=== PATIENT | male | born 1985 | race Caucasian/White ===

== ENCOUNTER 2017-12-24 19:57 | Inpatient (IN) | payer BC, OTHER ==
[~2017-12-24 19:57] MED LIST: METH-543 PO
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
[2017-12-24] MEDS ORDERED: TETRACAIN/EPI/LIDO GEL 3ML SYR TP ONE (20:18)
[2017-12-24] MEDS ORDERED: DIPHTH/TETANUS/ACEL. PERTUSSIS IM ONLY ONE (20:20)
[2017-12-24] MEDS ORDERED: fentaNYL CITR 100 MCG/2 ML AMP IVP ONE ×2 (20:20→21:15)
[2017-12-24 20:55] LABS: PLATELET COUNT, AUTOMATED 307 K/uL (150-450)
[2017-12-24 21:04] LABS: INR 0.98
[2017-12-24] MEDS ORDERED: IOPAMIDOL 76% 100 ML INFUS BTL 100 ML ONE (21:10)
[2017-12-24] MEDS ORDERED: fentaNYL CITR 100 MCG/2 ML AMP ONE (21:16)
[2017-12-24] MEDS ORDERED: ONDANSETRON 4 MG/2 ML VIAL ONE (21:16)
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
[2017-12-24] MEDS ORDERED: HYDROMORPHONE HCL 1 MG/ML SYRINGE IVP ONE (21:55)
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
[2017-12-24] MEDS ORDERED: LR(*) 1000 ML BAG 1,000 ML IV PRN (23:30)
[2017-12-24] MEDS ORDERED: NALOXONE HCL 0.4 MG/ML VIAL IVP PRN (23:30)
[2017-12-24] MEDS: KETOROLAC 30 MG/ML VIAL IVP SCH (23:56)
[2017-12-25] VITALS (7 sets, daily range): BP systolic 109–119; BP diastolic 61–75
[2017-12-25] MEDS: HYDROmorphone HCL 2 MG/ML SDV IVP PRN (04:31)
[2017-12-25] MEDS: KETOROLAC 30 MG/ML VIAL IVP SCH ×3 (05:32→17:48)
[2017-12-25 05:48] LABS: PLATELET COUNT, AUTOMATED 203 K/uL (150-450)
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
[2017-12-25] MEDS: FAMOTIDINE 20 MG TAB PO SCH ×2 (08:20→19:57)
[2017-12-25] MEDS ORDERED: LR(*) 1000 ML BAG 1,000 ML IV PRN (08:20)
[2017-12-25] MEDS: DOCUSATE SODIUM 100 MG CAP PO SCH ×2 (08:21→19:57)
[2017-12-25] MEDS: ENOXAPARIN 40 MG/0.4ML SYR SC SCH (08:21)
--- NOTE | 2017-12-25 08:35 | General Surgery Progress Note ---
Subjective Progress Notes Subjective Pain under control, IS up to 2500. No new complaints. Physical Exam Vital Signs Date Time Temp Pulse Resp B/P (MAP) Pulse Ox O2 Delivery O2 Flow Rate FiO2 12/25/17 08:13 97.6 12/25/17 08:09 73 16 109/62 (78) 99 Nasal Cannula 4.0 General Appearance: Alert, Awake, No Acute Distress, Afebrile Neuro: No Gross deficits Eyes: PERRLA ENT: Moist Mucous Membranes Cardiovascular: Regular Rate and Rhythm, No JVD Respiratory: No Respiratory Distress, Clear to Auscultation (Diminished left chest anteriorly) Chest: Other (left chest tender, no subcutaneous emphysema or crepitance) GI: Soft and Non-Tender Extremities: Soft and Non Tender Integumentary: Other (Abrasions clean) Result Diagram: 12/25/17 0512/24/172044 Imaging CXR Slight increase in size of left apical pneumothorax Monitor Interpretation: Normal Sinus Rhythm Assessment and Plan Problems: (1) Pneumothorax Status: Acute Assessment & Plan: 12/24/17: Small CT only pneumothorax, no respiratory distress, O2 saturations okay, will try to see if this resolves spontaneously, continue O2 via NC at 4 liters/min. Repeat CXR in am. 12/25/17: Slight increase in apical pneumothorax, no respiratoy distress. Continue high flow NC oxygen. Will recheck CXR at 1600 if larger then will place pigtail. I discussed this with patient and he understands the plan. (2) Scalp laceration Status: Acute Assessment & Plan: 12/24/17: Tetanus booster given, Scalp wound cleansed and repaired by ED with [place]. Ice packs. Will need jo ann out in 10 days. 12/25/17: Moderate swelling as expected. Ice packs prn. Bacitracin. Okay to shower tomorrow. [place] out 01/03/18. (3) Left pulmonary contusion Status: Acute Assessment & Plan: 12/24/17: Small focus of contusion involving only one lobe, no respiratory compromise. Recheck CXR in am. 12/25/17: Not evident on CXR this morning. O2 saturations 100% on 4l NC (4) Abrasions of multiple sites Status: Acute Assessment & Plan: 12/24/17: cleansed and dressed by ED. Bacitracin BID 12/25/17: Continue Bacitracin, can shower tomorrow. (5) Ribs, multiple fractures Status: Acute Assessment & Plan: 12/24/2017: Left ribs 3-8 fractured, nondisplaced. Admit for pain control Dilaudid, Percocet, and Ketolorac. IS and vigorous pulmonary toilet. Repeat CXR in am. 12/25/17: Good pain control, IS up to 2500, Continue current pain meds. Continue vigorous pulmonary toilet. Time Spent: < 30 min Exam Sepsis Risk: No Definite Risk Problem Qualifiers (1) Pneumothorax: Pneumothorax type: traumatic Encounter type: initial encounter Qualified Codes: S27.0XXA - Traumatic pneumothorax, initial encounter (2) Scalp laceration: Encounter type: initial encounter Qualified Codes: S01.01XA - Laceration without foreign body of scalp, initial encounter (3) Left pulmonary contusion: Encounter type: initial encounter Qualified Codes: S27.321A - Contusion of lung, unilateral, initial encounter (4) Ribs, multiple fractures: Encounter type: initial encounter Fracture type: closed Laterality: left Qualified Codes: S22.42XA - Multiple fractures of ribs, left side, initial encounter for closed fracture BRANDY PINEDO MD Dec 25, 2017 08:35
[2017-12-25] MEDS: BACITRACIN OINT 0.9 GM PKT TP SCH ×2 (09:00→21:00)
--- NOTE | 2017-12-25 16:36 | RADIOLOGY IMAGING REPORT ---
FACILITY: [facility] PATIENT NAME: Gabino Proctor : 1985 MR: [id number] V: [id number] EXAM DATE: ORDERING PHYSICIAN: BRANDY PINEDO TECHNOLOGIST: Location: [facility] [place] Patient: Gabino Proctor : 1985 Visit/Account:[id number] Date of Sevice: 12/25/2017 EXAMINATION: Portable chest radiograph single view at 1550 hours HISTORY: Follow-up on left apical pneumothorax. COMPARISON: CT chest from 12/24/2017 and chest radiograph from 12/25/2017 at 0602 hours. FINDINGS: A single portable AP view of the chest is obtained. Lines/tubes: None. Lungs/pleura: Small to moderate left apical pneumothorax is unchanged. Trace pleural air at the lef t lateral lung base is new or better visualized. Mild left basilar atelectasis. Right lung is clear . There is no pleural effusion. Heart: Negative. Mediastinum: Negative. Bony structures/body wall: Multiple left-sided rib fractures, better visualized on previous CT. IMPRESSION: 1. Small to moderate left pneumothorax, largest at the apex, overall unchanged from most recent ches t radiograph. 2. Mild left basilar atelectasis. Report Dictated By: Lynn Simon MD at 12/25/2017 4:29 PM Report E-Signed By: Lynn Simon MD at 12/25/2017 4:32 PM WSN:[id number]
[2017-12-25] MEDS: ONDANSETRON 4 MG/2 ML VIAL IVP PRN (19:54)
[2017-12-26] MEDS: KETOROLAC 30 MG/ML VIAL IVP SCH ×4 (00:11→18:11)
[2017-12-26 03:03] VITALS: BP 114/55
[2017-12-26 06:27] LABS: PLATELET COUNT, AUTOMATED 186 K/uL (150-450)
--- NOTE | 2017-12-26 06:57 | RADIOLOGY IMAGING REPORT ---
FACILITY: [facility] [place] PATIENT NAME: Gabino Proctor : 1985 MR: [id number] V: [id number] EXAM DATE: ORDERING PHYSICIAN: DONNA ESPINOZA TECHNOLOGIST: Location: [facility] [place] Patient: Gabino Proctor : 1985 Visit/Account:[id number] Date of Sevice: 12/26/2017 CHEST SINGLE AP Indication: Left pneumothorax. Comparison: December 25, 2016. Findings: Heart size within normal limits. There is no focal infiltrate or lobar consolidation. Left basilar atelectasis. Small to moderate left apical pneumothorax is grossly unchanged since prior exam. No right-sided pneu mothorax. Note is made of left-sided rib fractures. IMPRESSION: 1. Small to moderate left apical pneumothorax is grossly unchanged Report Dictated By: Amadou Will MD at 12/26/2017 6:52 AM Report E-Signed By: Amadou Will MD at 12/26/2017 6:53 AM WSN:[id number]
[2017-12-26 07:22] VITALS: BP 115/70
[2017-12-26] MEDS: FAMOTIDINE 20 MG TAB PO SCH ×2 (09:00→21:16)
[2017-12-26] MEDS: DOCUSATE SODIUM 100 MG CAP PO SCH ×2 (09:00→21:16)
[2017-12-26] MEDS: ENOXAPARIN 40 MG/0.4ML SYR SC SCH (09:00)
[2017-12-26] MEDS: BACITRACIN OINT 0.9 GM PKT TP SCH ×2 (10:00→21:16)
[2017-12-26 11:15] VITALS: BP 114/66
[2017-12-26] MEDS ORDERED: ceFAZolin(*) 2GM/D5W 50ML 50 ML IVPB ONE (11:55)
[2017-12-26] MEDS ORDERED: ACETAMINOPHEN 500 MG TAB PO PRN (12:15)
--- NOTE | 2017-12-26 12:24 | General Surgery Progress Note ---
Subjective Progress Notes Subjective Ambulating on the floor with a walker. Wearing N/C O2. Pain is moderately well controlled Patient Complains of: Neurological: No: Syncope, Confusion, Weakness, Dizziness Cardiovascular: No: Chest Pain, Palpitations Respiratory: No: Cough, Congestion, Shortness of Breath Gastrointestinal: No Nausea, No Vomiting, No Flatus Musculoskeletal: Pain, Strain, Impaired Mobility, No: Sprain Physical Exam Vital Signs Date Time Temp Pulse Resp B/P (MAP) Pulse Ox O2 Delivery O2 Flow Rate FiO2 12/26/17 11:15 97.7 62 16 114/66 (82) 100 Nasal Cannula 8.0 Intake and Output 12/27/17 07:00 Intake Total 160 ml Balance 160 ml Intake Oral 160 ml # Voids 1 General Appearance: Alert, Awake, No Acute Distress, Afebrile Neuro: No Gross deficits Eyes: PERRLA, Other (EOMI) ENT: Normal, Moist Mucous Membranes Cardiovascular: Normal Rhythm & Peripheral Pulses, Regular Rate and Rhythm, No Edema Respiratory: No Respiratory Distress, Clear to Auscultation Chest: Other (Chest wall tenderness) GI: Soft and Non-Tender Extremities: Soft and Non Tender, Warm, Perfused Integumentary: Other (Left shoulder and left hip skin abrasions) Psych: Alert & Oriented X3, Appropriate Mood & Affect Result Diagram: 12/26/17 0601 12/24/172044 Monitor Interpretation: Normal Sinus Rhythm Assessment and Plan Problems: (1) Pneumothorax Status: Acute Assessment & Plan: 12/24/17: Small CT only pneumothorax, no respiratory distress, O2 saturations okay, will try to see if this resolves spontaneously, continue O2 via NC at 4 liters/min. Repeat CXR in am. 12/25/17: Slight increase in apical pneumothorax, no respiratory distress. Continue high flow NC oxygen. Will recheck CXR at 1600 if larger then will place pigtail. I discussed this with patient and he understands the plan. 12/26/17: CXR with persistent LEFT pneumothorax, unchanged in size despite N/C O2 supplementation. I have discussed options with the pt to include high flow mask O2 to help with absorption vs placement of a left chest tube. All risks, benefits and complications have been discussed and explained to include persistent air leak, infection, bleeding, injury to underlying structures to include the lung/heart/blood vessels. After careful consultation with his , he has elected to place a chest tube. Informed consent obtained. Will obtain post tube placement CXR and give 2 grams Ancef pre procedure for prophylaxis. (2) Scalp laceration Status: Acute Assessment & Plan: 12/24/17: Tetanus booster given, Scalp wound cleansed and repaired by ED with Jo Ann. Ice packs. Will need jo ann out in 10 days. 12/25/17: Moderate swelling as expected. Ice packs prn. Bacitracin. Okay to shower tomorrow. 12/26/17: Healing well. [place] out 01/03/18. (3) Left pulmonary contusion Status: Acute Assessment & Plan: 12/24/17: Small focus of contusion involving only one lobe, no respiratory compromise. Recheck CXR in am. 12/25/17: Not evident on CXR this morning. O2 saturations 100% on 4l NC 12/26/17: Not evident on his am CXR. Desaturation to 70% when comes off his oxygen (4) Abrasions of multiple sites Status: Acute Assessment & Plan: 12/24/17: cleansed and dressed by ED. Bacitracin BID 12/25/17: Continue Bacitracin, can shower tomorrow. 12/26/17: Continue Bacitracin, can shower daily (5) Ribs, multiple fractures Status: Acute Assessment & Plan: 12/24/2017: Left ribs 3-8 fractured, nondisplaced. Admit for pain control Dilaudid, Percocet, and Ketolorac. IS and vigorous pulmonary toilet. Repeat CXR in am. 12/25/17: Good pain control, IS up to 2500, Continue current pain meds. Continue vigorous pulmonary toilet. 12/26/17: Good pain control. IS 4000. Continue pain management with multimodal therapy and aggressive pulmonary toilet. Minimal displacement on CXR. No retained hemothorax. (6) Hypoxia Status: Acute Assessment & Plan: 12/26/17: Desaturation to 70% when off N/C O2; wean as tolerated. Pneumothorax expansion may improve this. CXR clear. No secretions. (7) Concussion without loss of consciousness Status: Acute Assessment & Plan: 12/26/17: Dazed after hitting his head; scalp laceration; reports no LOC. Neg Head CT on admit. Normal bedside cognitive evaluation. Consider for post concussion surveillance. Avoid recurrent TBI (8) At high risk for deep venous thrombosis Status: Acute Assessment & Plan: 12/26/17: DVT risk high given trauma; CXR without hemothorax. Currently in 40 Lovenox QD. Will change to trauma dose of 30 mg BID given no bleeding noted to date from multiple rib fractures; Continue SCDs. Time Spent: > 30 min (To include chart review, CXR review, documentation, exam , informed consent of care plan options. ) Exam Sepsis Risk: No Definite Risk Problem Qualifiers (1) Pneumothorax: Pneumothorax type: traumatic Encounter type: subsequent encounter Qualified Codes: S27.0XXD - Traumatic pneumothorax, subsequent encounter (2) Scalp laceration: Encounter type: subsequent encounter Qualified Codes: S01.01XD - Laceration without foreign body of scalp, subsequent encounter (3) Left pulmonary contusion: Encounter type: subsequent encounter Qualified Codes: S27.321D - Contusion of lung, unilateral, subsequent encounter (4) Ribs, multiple fractures: Encounter type: subsequent encounter Fracture type: closed Laterality: left Fracture healing: with routine healing Qualified Codes: S22.42XD - Multiple fractures of ribs, left side, subsequent encounter for fracture with routine healing (5) Concussion without loss of consciousness: Encounter type: subsequent encounter Qualified Codes: S06.0X0D - Concussion without loss of consciousness, subsequent encounter BETH HAM MD Dec 26, 2017 12:24
--- NOTE | 2017-12-26 12:27 | Procedure Note ---
Chest Tube Procedure Note Reason for Chest Tube 12/26/17: CXR with persistent pneumothorax, unchanged in size despite N/C O2 supplementation. I have discussed options with the pt to include high flow mask O2 to help with absorption vs placement of a left chest tube. All risks, benefits and complications have been discussed and explained to include persistent air leak, infection, bleeding, injury to underlying structures to include the lung/heart/blood vessels. After careful consultation with his , he has elected to place a chest tube. Informed consent obtained. Consent Signed: Yes Chest Tube Location: Left Lung Complications: None Anesthesia Used: 1% Lidocaine CC's of Anesthesia: 10 Chest Tube Size Fr.: 14 Chest Tube Suction: Pleura-Vac Chest Tube Secured: Occlusive Dressing Post Procedure Xray Ordered: Yes Comment Ancef 2 grams administered pre procedure. BETH HAM MD Dec 26, 2017 12:27
[2017-12-26] MEDS: HYDROmorphone HCL 2 MG/ML SDV IVP PRN ×2 (12:51→21:23)
--- NOTE | 2017-12-26 14:14 | RADIOLOGY IMAGING REPORT ---
FACILITY: [facility] PATIENT NAME: Gabino Proctor : 1985 MR: [id number] V: [id number] EXAM DATE: ORDERING PHYSICIAN: BETH HAM TECHNOLOGIST: Location: [facility] Patient: Gabino Proctor : 1985 Visit/Account:[id number] Date of Sevice: 12/26/2017 Chest single view: HISTORY: Chest tube placement. COMPARISON: 12/26/2017 0525 hours FINDINGS: Portable chest 1259 hours: Since prior study, small caliber left chest tube has been placed , near the left lung apex. There is no definite residual pneumothorax identified. Minimal subsegmenta l atelectasis is present in the left lung base. Right lung is clear. Heart and mediastinal contours a re within normal limits. Left rib fractures noted. IMPRESSION: 1. Interval placement of small-caliber left chest tube with resolution of the left pneumothorax. 2. Left basilar subsegmental atelectasis. Report Dictated By: Mirta Pizarro MD at 12/26/2017 2:06 PM Report E-Signed By: Mirta Pizarro MD at 12/26/2017 2:11 PM WSN:[id number]
[2017-12-26 15:09] VITALS: BP 119/72
[2017-12-26] MEDS: ONDANSETRON 4 MG/2 ML VIAL IVP PRN (15:16)
[2017-12-26] MEDS: oxyCODONE HCL 5 MG CAP PO PRN ×2 (16:23→21:15)
[2017-12-26 19:29] VITALS: BP 111/67
[2017-12-26 23:04] VITALS: BP 117/70
[2017-12-27] MEDS: KETOROLAC 30 MG/ML VIAL IVP SCH ×4 (00:38→18:33)
[2017-12-27] MEDS: oxyCODONE HCL 5 MG CAP PO PRN ×5 (01:30→19:13)
[2017-12-27 03:03] VITALS: BP 112/67
[2017-12-27] MEDS: HYDROmorphone HCL 2 MG/ML SDV IVP PRN ×3 (03:34→14:35)
[2017-12-27] MEDS: ONDANSETRON 4 MG/2 ML VIAL IVP PRN ×3 (03:46→19:13)
[2017-12-27 05:45] LABS: PLATELET COUNT, AUTOMATED 177 K/uL (150-450)
--- NOTE | 2017-12-27 07:24 | RADIOLOGY IMAGING REPORT ---
FACILITY: [facility] PATIENT NAME: Gabino Proctor : 1985 MR: [id number] V: [id number] EXAM DATE: ORDERING PHYSICIAN: BETH HAM TECHNOLOGIST: Location: [facility] - [place] Patient: Gabino Proctor : 1985 Visit/Account:[id number] Date of Sevice: 12/27/2017 CHEST SINGLE AP Indication: Chest tube. Comparison: None available Findings: Left chest tube without visualized pneumothorax. Heart size within normal limits. There is no focal infiltrate or lobar consolidation. No pleural effusion. Left rib fractures noted. IMPRESSION: 1. Left-sided chest tube without visualized pneumothorax. Report Dictated By: Amadou Will MD at 12/27/2017 7:20 AM Report E-Signed By: Amadou Will MD at 12/27/2017 7:21 AM WSN:[id number]
[2017-12-27 07:44] VITALS: BP 121/70
[2017-12-27] MEDS: BACITRACIN OINT 0.9 GM PKT TP SCH ×2 (09:00→20:37)
[2017-12-27] MEDS: DOCUSATE SODIUM 100 MG CAP PO SCH ×2 (09:33→20:36)
[2017-12-27] MEDS: FAMOTIDINE 20 MG TAB PO SCH ×2 (09:33→20:36)
[2017-12-27] MEDS: ENOXAPARIN 40 MG/0.4ML SYR SC SCH ×2 (09:33→20:37)
[2017-12-27 11:13] VITALS: BP 121/66
[2017-12-27 15:34] VITALS: BP 118/68
--- NOTE | 2017-12-27 16:03 | General Surgery Progress Note ---
Subjective Progress Notes Subjective Ambulating; Margarito diet; No BM, Left CT in place with no macario leak while on water seal x 24 hours Patient Complains of: Neurological: No: Syncope, Confusion, Weakness Cardiovascular: No: Chest Pain Respiratory: No: Cough, Congestion, Shortness of Breath Gastrointestinal: No Bowel Movement Musculoskeletal: Impaired Mobility (secondary to injuries) Physical Exam Vital Signs Date Time Temp Pulse Resp B/P (MAP) Pulse Ox O2 Delivery O2 Flow Rate FiO2 12/27/17 15:34 98.2 63 20 118/68 (85) 95 Nasal Cannula 1.0 Intake and Output 12/28/17 07:00 Intake Total 320 ml Balance 320 ml Intake Oral 320 ml # Voids 1 General Appearance: Alert, Awake, No Acute Distress, Afebrile Neuro: No Gross deficits Eyes: PERRLA, Other (EOMI) ENT: Normal, Moist Mucous Membranes Cardiovascular: Normal Rhythm & Peripheral Pulses, Regular Rate and Rhythm Respiratory: No Respiratory Distress, Clear to Auscultation Chest: Other (Tender left chest; 14 FR chest tube in place, no air leak) GI: Soft and Non-Tender Extremities: Soft and Non Tender, Warm, Pulses, Perfused Integumentary: Other (Left shoulder and left hip skin abrasions- severe. No cellulitis) Psych: Alert & Oriented X3, Appropriate Mood & Affect Result Diagram: 12/27/1753212/24/172044 Imaging CXR: expanded lung. CT in place Monitor Interpretation: Normal Sinus Rhythm Assessment and Plan Problems: (1) Pneumothorax Status: Acute Assessment & Plan: 12/24/17: Small CT only pneumothorax, no respiratory distress, O2 saturations okay, will try to see if this resolves spontaneously, continue O2 via NC at 4 liters/min. Repeat CXR in am. 12/25/17: Slight increase in apical pneumothorax, no respiratory distress. Continue high flow NC oxygen. Will recheck CXR at 1600 if larger then will place pigtail. I discussed this with patient and he understands the plan. 12/26/17: CXR with persistent LEFT pneumothorax, unchanged in size despite N/C O2 supplementation. I have discussed options with the pt to include high flow mask O2 to help with absorption vs placement of a left chest tube. All risks, benefits and complications have been discussed and explained to include persistent air leak, infection, bleeding, injury to underlying structures to include the lung/heart/blood vessels. After careful consultation with his , he has elected to place a chest tube. Informed consent obtained. Will obtain post tube placement CXR and give 2 grams Ancef pre procedure for prophylaxis. 12/27/17:Chest tube in place and on water seal overnight; No air leak. CXR with no pneumothorax. D/C CT this PM; obtain CXR 4 hours post pull- if no pneumo- d/ c to home (2) Scalp laceration Status: Acute Assessment & Plan: 12/24/17: Tetanus booster given, Scalp wound cleansed and repaired by ED with Daniel. Ice packs. Will need daniel out in 10 days. 12/25/17: Moderate swelling as expected. Ice packs prn. Bacitracin. Okay to shower tomorrow. 12/26/17: Healing well. [place] out 01/03/18. 12/27/17: Healing well but with old dried blood. [place] out 01/03/18. (3) Left pulmonary contusion Status: Acute Assessment & Plan: 12/24/17: Small focus of contusion involving only one lobe, no respiratory compromise. Recheck CXR in am. 12/25/17: Not evident on CXR this morning. O2 saturations 100% on 4l NC 12/26/17: Not evident on his am CXR. Desaturation to 70% when comes off his oxygen (4) Abrasions of multiple sites Status: Acute Assessment & Plan: 12/24/17: cleansed and dressed by ED. Bacitracin BID 12/25/17: Continue Bacitracin, can shower tomorrow. 12/26/17: Continue Bacitracin, can shower daily 12/27/17: Continue Bacitracin after today's shower (5) Ribs, multiple fractures Status: Acute Assessment & Plan: 12/24/2017: Left ribs 3-8 fractured, nondisplaced. Admit for pain control Dilaudid, Percocet, and Ketolorac. IS and vigorous pulmonary toilet. Repeat CXR in am. 12/25/17: Good pain control, IS up to 2500, Continue current pain meds. Continue vigorous pulmonary toilet. 12/26/17: Good pain control. IS 4000. Continue pain management with multimodal therapy and aggressive pulmonary toilet. Minimal displacement on CXR. No retained hemothorax. 12/27/17: Good pain control. IS 3600. Continue pain management with multimodal therapy and aggressive pulmonary toilet. Minimal displacement on CXR. No retained hemo/pneumo thorax. (6) Hypoxia Status: Acute Assessment & Plan: 12/26/17: Desaturation to 70% when off N/C O2; wean as tolerated. Pneumothorax expansion may improve this. CXR clear. No secretions. 12/27/17: Remains on 1 liter O2; Will need to be discharged home with home O2 as of this time (7) Concussion without loss of consciousness Status: Acute Assessment & Plan: 12/26/17: Dazed after hitting his head; scalp laceration; reports no LOC. Neg Head CT on admit. Normal bedside cognitive evaluation. Consider for post concussion surveillance. Avoid recurrent TBI (8) At high risk for deep venous thrombosis Status: Acute Assessment & Plan: 12/26/17: DVT risk high given trauma; CXR without hemothorax. Currently in 40 Lovenox QD. Will change to trauma dose of 30 mg BID given no bleeding noted to date from multiple rib fractures; Continue SCDs. 12/27/17: Lovenox and SCDs Condition Left chest tube removed in PM without incident. Post pull CXR at 1600. Exam Sepsis Risk: No Definite Risk Problem Qualifiers (1) Pneumothorax: Pneumothorax type: traumatic Encounter type: subsequent encounter Qualified Codes: S27.0XXD - Traumatic pneumothorax, subsequent encounter (2) Scalp laceration: Encounter type: subsequent encounter Qualified Codes: S01.01XD - Laceration without foreign body of scalp, subsequent encounter (3) Left pulmonary contusion: Encounter type: subsequent encounter Qualified Codes: S27.321D - Contusion of lung, unilateral, subsequent encounter (4) Ribs, multiple fractures: Encounter type: subsequent encounter Fracture type: closed Laterality: left Fracture healing: with routine healing Qualified Codes: S22.42XD - Multiple fractures of ribs, left side, subsequent encounter for fracture with routine healing (5) Concussion without loss of consciousness: Encounter type: subsequent encounter Qualified Codes: S06.0X0D - Concussion without loss of consciousness, subsequent encounter BETH HAM MD Dec 27, 2017 16:03
[2017-12-27] MEDS ORDERED: MAGNESIUM CITRATE 300 ML BTL PO ONE (16:12)
[2017-12-27] MEDS ORDERED: NEOMYCIN/POLYMYX/BACITR OINT 1 PACKET TP ONE (16:55)
[2017-12-27] MEDS ORDERED: IBUP800T37 PO (18:58)
[2017-12-27] MEDS ORDERED: GABA-549 PO (18:58)
[2017-12-27] MEDS ORDERED: ACET500T68 PO (18:58)
[2017-12-27] MEDS ORDERED: POLY17PO25 PO (18:58)
[2017-12-27] MEDS ORDERED: BACOUD TP (18:58)
[2017-12-27] MEDS ORDERED: OXYC5TAB38 PO (18:58)
[2017-12-27] MEDS ORDERED: DOCU-416 PO (18:58)
--- NOTE | 2017-12-27 19:21 | Hospitalist Depart ---
Discharge Summary Reason for Hosp/Final Diag: (1) Pneumothorax Status: Acute Hospital Course & Plan: 12/24/17: Small CT only pneumothorax, no respiratory distress, O2 saturations okay, will try to see if this resolves spontaneously, continue O2 via NC at 4 liters/min. Repeat CXR in am. 12/25/17: Slight increase in apical pneumothorax, no respiratory distress. Continue high flow NC oxygen. Will recheck CXR at 1600 if larger then will place pigtail. I discussed this with patient and he understands the plan. 12/26/17: CXR with persistent LEFT pneumothorax, unchanged in size despite N/C O2 supplementation. I have discussed options with the pt to include high flow mask O2 to help with absorption vs placement of a left chest tube. All risks, benefits and complications have been discussed and explained to include persistent air leak, infection, bleeding, injury to underlying structures to include the lung/heart/blood vessels. After careful consultation with his , he has elected to place a chest tube. Informed consent obtained. Will obtain post tube placement CXR and give 2 grams Ancef pre procedure for prophylaxis. 12/27/17:Chest tube in place and on water seal overnight; No air leak. CXR with no pneumothorax. D/C CT this PM; obtain CXR 4 hours post pull- if no pneumo- d/ c to home. F/U with Dr Espinoza in 2 weeks (2) Scalp laceration Status: Acute Hospital Course & Plan: 12/24/17: Tetanus booster given, Scalp wound cleansed and repaired by ED with Daniel. Ice packs. Will need daniel out in 10 days. 12/25/17: Moderate swelling as expected. Ice packs prn. Bacitracin. Okay to shower tomorrow. 12/26/17: Healing well. [place] out 01/03/18. 12/27/17: Healing well but with old dried blood. [place] out 01/03/18. (3) Left pulmonary contusion Status: Acute Hospital Course & Plan: 12/24/17: Small focus of contusion involving only one lobe, no respiratory compromise. Recheck CXR in am. 12/25/17: Not evident on CXR this morning. O2 saturations 100% on 4l NC 12/26/17: Not evident on his am CXR. Desaturation when comes off his oxygen (4) Abrasions of multiple sites Status: Acute Hospital Course & Plan: 12/24/17: cleansed and dressed by ED. Bacitracin BID 12/25/17: Continue Bacitracin, can shower tomorrow. 12/26/17: Continue Bacitracin, can shower daily 12/27/17: Continue Bacitracin after BID showers shower (5) Ribs, multiple fractures Status: Acute Hospital Course & Plan: 12/24/2017: Left ribs 3-8 fractured, nondisplaced. Admit for pain control Dilaudid, Percocet, and Ketolorac. IS and vigorous pulmonary toilet. Repeat CXR in am. 12/25/17: Good pain control, IS up to 2500, Continue current pain meds. Continue vigorous pulmonary toilet. 12/26/17: Good pain control. IS 4000. Continue pain management with multimodal therapy and aggressive pulmonary toilet. Minimal displacement on CXR. No retained hemothorax. 12/27/17: Good pain control. IS 3600. Continue pain management with multimodal therapy and aggressive pulmonary toilet. Minimal displacement on CXR. No retained hemo/pneumo thorax. F/U CXR with outpt followup (6) Hypoxia Status: Acute Hospital Course & Plan: 12/26/17: Desaturation to 70% when off N/C O2; wean as tolerated. Pneumothorax expansion may improve this. CXR clear. No secretions. 12/27/17: Remains on 1 liter O2; Will need to be discharged home with home O2 as of this time (7) Concussion without loss of consciousness Status: Acute Hospital Course & Plan: 12/26/17: Dazed after hitting his head; scalp laceration ; reports no LOC. Neg Head CT on admit. Normal bedside cognitive evaluation. Consider for post concussion surveillance. Avoid recurrent TBI (8) At high risk for deep venous thrombosis Status: Acute Hospital Course & Plan: 12/26/17: DVT risk high given trauma; CXR without hemothorax. Currently in 40 Lovenox QD. Will change to trauma dose of 30 mg BID given no bleeding noted to date from multiple rib fractures; Continue SCDs. 12/27/17: Lovenox and SCDs Departure Weight (Pounds): 165 Result Diagram: 12/27/17 0533 12/24/172044 Imaging CXR after chest tube removal- no pneumothorax Condition: Improved Discharge: Home Discharge Code Status: Full Code Treatments: Dressing Change, Wound Care Discharge Instructions Home Meds Active Scripts Docusate Sodium (COLACE) 100 Mg Capsule, 100 MG PO BID for 30 Days, #60 CAPSULE Prov:BETH HAM MD 12/27/17 Bacitracin (BACITRACIN ZINC) 0.9 Gm Oint, 0.9 GM TP TID for 10 Days, #10 TUBE 3 Refills Prov:BETH HAM MD 12/27/17 Gabapentin (GABAPENTIN) 300 Mg Capsule, 300 MG PO TID for PAIN for 30 Days, CAPSULE 3 Refills Prov:BETH HAM MD 12/27/17 Polyethylene Glycol 3350 (MIRALAX) 17 Gm Powd.pack, 17 GM PO BID for 30 Days, # 60 PKT Prov:BETH HAM MD 12/27/17 Ibuprofen (IBUPROFEN) 800 Mg Tablet, 1 TAB PO Q8H for PAIN for 30 Days, #90 TAB Prov:BETH HAM MD 12/27/17 Oxycodone Hcl (OXYCODONE HCL) 5 Mg Tablet, 5-10 MG PO Q4H Y for PAIN for 10 Days , #30 CAP Prov:BETH HAM MD 12/27/17 Acetaminophen (TYLENOL EXTRA STRENGTH) 500 Mg Tablet, 1000 MG PO TID for PAIN for 30 Days, #120 TAB 3 Refills Prov:BETH HAM MD 12/27/17 Discontinued Reported Medications [none] No Conflict Check 06/05/13 Discontinued Scripts Methocarbamol (ROBAXIN-750) 750 Mg Tablet, 1 TAB PO TID Y for muscle spasm relief, #30 Prov:CEASAR OWEN DO 03/21/17 Diet: Regular Activity: As Tolerated, No Driving (While on narcotics) Special Instructions: Continue Incentive Spirometry every hour while awake Bacitracin to skin wounds twice daily Call to schedule a followup appointment with Dr Espinoza from General Surgery between to 08 January for staple removal, concussion and followup on rib fractures Copies to: DONNA ESPINOZA MD Venous Thromboembolism Antithrombotics Is Pt On Any Antithrombotics?: No Problem Qualifiers (1) Pneumothorax: Pneumothorax type: traumatic Encounter type: subsequent encounter Qualified Codes: S27.0XXD - Traumatic pneumothorax, subsequent encounter (2) Scalp laceration: Encounter type: subsequent encounter Qualified Codes: S01.01XD - Laceration without foreign body of scalp, subsequent encounter (3) Left pulmonary contusion: Encounter type: subsequent encounter Qualified Codes: S27.321D - Contusion of lung, unilateral, subsequent encounter (4) Ribs, multiple fractures: Encounter type: subsequent encounter Fracture type: closed Laterality: left Fracture healing: with routine healing Qualified Codes: S22.42XD - Multiple fractures of ribs, left side, subsequent encounter for fracture with routine healing (5) Concussion without loss of consciousness: Encounter type: subsequent encounter Qualified Codes: S06.0X0D - Concussion without loss of consciousness, subsequent encounter BETH HAM MD Dec 27, 2017 18:44
--- NOTE | 2017-12-27 20:39 | RADIOLOGY IMAGING REPORT ---
FACILITY: [facility] - [place] PATIENT NAME: Gabino Proctor : 1985 MR: [id number] V: [id number] EXAM DATE: ORDERING PHYSICIAN: BETH HAM TECHNOLOGIST: Location: [facility] [place] Patient: Gabino Proctor : 1985 Visit/Account:[id number] Date of Sevice: 12/27/2017 CHEST SINGLE AP Indication: Chest tube removal.. Comparison: X-ray earlier in the day. Findings: The left chest tube has been removed. No indication of any appreciable residual pneumothorax or pleur al fluid. No consolidations in the lung. No right effusion or pneumothorax. Cardiomediastinal silhouette and pulmonary vessels within normal limits. No discrete nodules. Upper abdomen is unremarkable. No acute bony abnormality. IMPRESSION: 1. Left chest tube removed. No appreciable left pneumothorax or pleural effusion. No consolidations. Report Dictated By: Uvaldo Alford at 12/27/2017 8:34 PM Report E-Signed By: Uvaldo Alford at 12/27/2017 8:36 PM WSN:[id number]
[2017-12-27 21:45] VITALS: BP 140/76
== END 2017-12-27 22:00 | disposition home or self-care (01) | DRG 200 ==
LOC: ER 20:22 → MED 23:36
PROVIDERS: ADMIT Surgery; ATTEND Surgery
PROC: 0HQ0XZZ Repair Scalp Skin, External Approach (ICD-10-PCS; 2017-12-24)
PROC: 0W9B30Z Drainage of Left Pleural Cavity with Drainage Device, Percutaneous Approach (ICD-10-PCS; principal; 2017-12-26)
DX: S27.0XXA Traumatic pneumothorax, initial encounter (principal); S22.42XA Multiple fractures of ribs, left side, initial encounter for closed fracture; S27.321A Contusion of lung, unilateral, initial encounter; S01.01XA Laceration without foreign body of scalp, initial encounter; S40.212A Abrasion of left shoulder, initial encounter; S70.212A Abrasion, left hip, initial encounter; S06.0X0A Concussion without loss of consciousness, initial encounter; S50.312A Abrasion of left elbow, initial encounter; R40.2412 Glasgow coma scale score 13-15, at arrival to emergency department; R09.02 Hypoxemia; V18.0XXA Pedal cycle driver injured in noncollision transport accident in nontraffic accident, initial encounter; Y93.55 Activity, bike riding; Y99.8 Other external cause status; Z23 Encounter for immunization
CPT/HCPCS: 36415; 70450; 71045; 71260; 72125; 72129; 72132; 72170; 74177; 82040; 82247; 82310; 82374; 82435; 82565; 82947; 83605; 84075; 84132; 84155; 84295; 84450; 84460; 84520; 85025; 85610; 85730; 90471; 90715; 96374; 96375; 96376; 99285; C9399; J0690; J1170; J1650; J1885; J2405; J3010; J7120; L0120; Q9967

== ENCOUNTER → 2018-01-04 | Outpatient (CLI) | payer BC ==
[~2018-01-04] MED LIST changes: +ACET500T68 PO; +BACOUD TP; +DOCU-416 PO; +GABA-549 PO; +IBUP800T37 PO; +OXYC5TAB38 PO; +POLY17PO25 PO
--- NOTE | 2018-01-04 15:01 | RADIOLOGY IMAGING REPORT ---
FACILITY: [facility] PATIENT NAME: Gabino Proctor : 1985 MR: [id number] V: [id number] EXAM DATE: ORDERING PHYSICIAN: DONNA ESPINOZA TECHNOLOGIST: Location: [facility] Patient: Gabino Proctor : 1985 Visit/Account:[id number] Date of Sevice: 01/04/2018 Exam type: CHEST PA AND LAT History: Prior pneumothorax, (contusion, multiple rib fractures Comparison: December 27, 2017. Findings: There is no evidence of pulmonary consolidation, pleural effusion, pneumothorax or pneumomediastinum. The trachea is in midline Cardiac swelling is normal in size. The left-sided rib fractures are aga in seen. IMPRESSION: 1. No acute cardiac pulmonary process is seen Previous noted left-sided rib fractures again seen Report Dictated By: Marie Kwok MD at 01/04/2018 2:56 PM Report E-Signed By: Marie Kwok MD at 01/04/2018 2:58 PM WSN:[email or web address]
== END ==
LOC: RAD 14:09
PROVIDERS: ATTEND Surgery
DX: S27.321A Contusion of lung, unilateral, initial encounter (principal); S22.49XA Multiple fractures of ribs, unspecified side, initial encounter for closed fracture
CPT/HCPCS: 71046

== ENCOUNTER → 2018-09-16 | Outpatient (REF) | payer BC ==
[2018-09-16 14:42] LABS: PLATELET COUNT, AUTOMATED 212 K/uL (150-450)
== END ==
PROVIDERS: ATTEND Family Medicine
DX: R53.83 Other fatigue (principal)
CPT/HCPCS: 82040; 82247; 82310; 82374; 82435; 82565; 82947; 84075; 84132; 84155; 84295; 84450; 84460; 84520; 85025; 86140